=== PATIENT | female | born 1990 | race Caucasian/White ===

== ENCOUNTER 2017-10-24 10:27 | Outpatient (CLI) | payer BC ==
[2017-10-24 11:47] LABS: AMNISURE (ROM) NEGATIVE (NEGATIVE)
[2017-10-24 12:15] LABS: APPEARANCE,URINE CLOUDY; BILIRUBIN,URINE NEGATIVE (NEGATIVE); GLUCOSE, URINE NEGATIVE (NEGATIVE); KETONES,URINE NEGATIVE (NEGATIVE); LEUKOCYTE ESTERASE,URINE NEGATIVE (NEGATIVE); NITRITE,URINE NEGATIVE (NEGATIVE); PROTEIN,URINE NEGATIVE (NEGATIVE); UROBILINOGEN,URINE NEGATIVE mg/dL (<2.0)
[2017-10-24 12:20] LABS: URINE BARBITURATES SCREEN NEGATIVE; URINE METHADONE SCREEN NEGATIVE; URINE OPIATES LOW NEGATIVE; URINE PHENCYCLIDINE SCREEN NEGATIVE
--- NOTE | 2017-10-24 12:31 | Non Stress Test Report ---
Non Stress Test Datetime Report Generated by CPN: 10/24/2017 12:31 DEMOGRAPHIC EGA NST: 32.1 INDICATION Indication for Study: Other Indication for Study (NST) Other: labor check VITAL SIGNS Temperature - NST: 99.1 NBPSYS NST: 110 NBPDIA NST: 53 MONITORING Monitor Explained: Monitor Explained; Test Explained; Patient Verbalized Understanding Time on Monitor: 10/24/2017 10:49 Time off Monitor: 10/24/2017 11:58 NST Duration: 69 NST INTERVENTIONS NST Interventions: PO Hydration Physician Notified NST: Dr. Kosta BABY A: [id number] BABY A Movement : Present Contraction Frequency : 0 FHR Baseline : 145 Accelerations : 15X15 Decelerations : None Variability : Moderate 6-25bpm NST Review: Meets Criteria for Reactive NST NST Review and Verified By : Velma Bhandari RNC NST Results: Reactive NST REPORT Report Trigger: Send Report
[2017-10-24 12:34] LABS: BACTERIA,URINE 1+ /HPF; RBC,URINE RARE /HPF; WBC,URINE 0-1 /HPF
[2017-10-24 13:35] LABS: ADD HIVPANEL? NO; HIV (1 AND 2) ANTIBODY NEGATIVE (NEGATIVE)
[2017-10-25 06:39] LABS: HEPATITIS C VIRUS AB <0.1 s/co ratio (0.0-0.9)
== END 2017-10-24 12:23 | disposition home or self-care (01) ==
LOC: LC 10:27
PROVIDERS: ATTEND Obstetrics & Gynecology
PROC: 4A1HXCZ Monitoring of Products of Conception, Cardiac Rate, External Approach (ICD-10-PCS; principal; 2017-10-24)
DX: Z34.93 Encounter for supervision of normal pregnancy, unspecified, third trimester (principal); Z36.89 Encounter for other specified antenatal screening; Z3A.32 32 weeks gestation of pregnancy
CPT/HCPCS: 36415; 59025; 80307; 81001; 84112; 84443; 86592; 86701; 86803; 86804; 87340

== ENCOUNTER 2017-12-08 21:16 | Outpatient (CLI) | payer BC, MEDICAID ==
[2017-12-08 21:55] LABS: APPEARANCE,URINE CLEAR; BILIRUBIN,URINE NEGATIVE (NEGATIVE); COLOR,URINE STRAW; GLUCOSE, URINE NEGATIVE (NEGATIVE); KETONES,URINE NEGATIVE (NEGATIVE); LEUKOCYTE ESTERASE,URINE NEGATIVE (NEGATIVE); NITRITE,URINE NEGATIVE (NEGATIVE); PROTEIN,URINE NEGATIVE (NEGATIVE); URINE SPECIFIC GRAVITY 1.005; UROBILINOGEN,URINE NEGATIVE mg/dL (<2.0)
[2017-12-08 22:09] LABS: URINE AMPHETAMINES SCREEN NEGATIVE; URINE BARBITURATES SCREEN NEGATIVE; URINE BENZODIAZEPINES SCREEN NEGATIVE; URINE COCAINE SCREEN NEGATIVE; URINE MARIJUANA (THC) SCREEN NEGATIVE; URINE METHADONE SCREEN NEGATIVE; URINE PHENCYCLIDINE SCREEN NEGATIVE
--- NOTE | 2017-12-08 23:25 | Non Stress Test Report ---
Non Stress Test Datetime Report Generated by CPN: 12/08/2017 23:24 DEMOGRAPHIC Test Number: 2 EGA NST: 38.4 INDICATION Indication for Study: Decreased Movement VITAL SIGNS Pulse - NST: 92 RESP - NST: 16 NBPSYS NST: 111 NBPDIA NST: 74 URINE RESULTS Urine Protein, NST: Negative Urine Ketones - NST: Negative Urine Glucose - NST: Negative Urine Blood - NST: Negative MONITORING Monitor Explained: Monitor Explained; Test Explained; Patient Verbalized Understanding Time on Monitor: 12/08/2017 21:39 Time off Monitor: 12/08/2017 22:38 NST Duration: 59 NST INTERVENTIONS NST Interventions: PO Hydration BABY A: [id number] BABY A Movement : Present; Decreased Contraction Frequency : none FHR Baseline : 140 Accelerations : 15X15 Decelerations : None Variability : Moderate 6-25bpm NST Review: Meets Criteria for Reactive NST NST Review and Verified By : Chalman, A. RN NST Results: Reactive NST REPORT Report Trigger: Send Report
== END 2017-12-08 22:46 | disposition home or self-care (01) ==
LOC: LC 21:16
PROVIDERS: ATTEND Student in an Organized Health Care Education/Training Program
PROC: 4A1HXCZ Monitoring of Products of Conception, Cardiac Rate, External Approach (ICD-10-PCS; principal; 2017-12-08)
DX: O36.8130 Decreased fetal movements, third trimester, not applicable or unspecified (principal); Z3A.38 38 weeks gestation of pregnancy
CPT/HCPCS: 59025; 80307; 81001

== ENCOUNTER 2017-12-20 22:40 | Inpatient (IN) | payer MEDICAID ==
[2017-12-20] MEDS ORDERED: RINGERS SOLUTION,LACTATED 1,000 ML IV ONE (23:05)
[2017-12-20] MEDS ORDERED: PENICILLIN G POTASSIUM 5,000,000 UNIT in DEXTROSE 5%-WATER 100 ML IV ONE (23:05)
[2017-12-20] MEDS ORDERED: EPHEDRINE SULFATE INJ 50 MG/1 ML AMPULE ONE (23:07)
[2017-12-20] MEDS ORDERED: OXYTOCIN/NORMAL SALINE 20 UNIT/1,000 ML RTUINJ ONE (23:07)
[2017-12-20] MEDS ORDERED: MISOPROSTOL 0.2 MG TABLET ONE (23:07)
[2017-12-20] MEDS ORDERED: FENTANYL/BUPIVACAINE/NS/PF 200 MCG/100 ML RTUINJ EPI ONE (23:07)
[2017-12-20] MEDS ORDERED: PENICILLIN G-K 5 MILLION UNIT VIAL ONE (23:07)
[2017-12-20] MEDS ORDERED: LIDOCAINE 1% INJ-PF (10 MG/ML) 30 ML SDV ONE (23:07)
[2017-12-20] MEDS ORDERED: BUPIVACAINE HCL 0.25 % INJ/PF (2.5 MG/1 ML) 30 ML VIAL ONE (23:07)
[2017-12-20 23:17] LABS: APPEARANCE,URINE CLOUDY; BILIRUBIN,URINE NEGATIVE (NEGATIVE); COLOR,URINE YELLOW; GLUCOSE, URINE NEGATIVE (NEGATIVE); KETONES,URINE 20 mg/dL (NEGATIVE); LEUKOCYTE ESTERASE,URINE LARGE (NEGATIVE); NITRITE,URINE NEGATIVE (NEGATIVE); PROTEIN,URINE NEGATIVE (NEGATIVE); URINE SPECIFIC GRAVITY 1.012; UROBILINOGEN,URINE NEGATIVE mg/dL (<2.0)
[2017-12-20] MEDS ORDERED: PENICILLIN G-K 5 MILLION UNIT VIAL IV PRN (23:18)
[2017-12-20 23:27] LABS: URINE AMPHETAMINES SCREEN NEGATIVE; URINE BARBITURATES SCREEN NEGATIVE; URINE BENZODIAZEPINES SCREEN NEGATIVE; URINE COCAINE SCREEN NEGATIVE; URINE MARIJUANA (THC) SCREEN NEGATIVE; URINE METHADONE SCREEN NEGATIVE; URINE PHENCYCLIDINE SCREEN NEGATIVE
[2017-12-20 23:32] LABS: ABSOLUTE BASOPHILS # (AUTO) 0.1 10^3/uL (0.0-0.2); ABSOLUTE EOSINOPHILS # (AUTO) 0.1 10^3/uL (0.0-0.6); ABSOLUTE LYMPHOCYTES (AUTO) 1.9 10^3/uL (0.5-4.7); ABSOLUTE MONOCYTES (AUTO) 0.6 10^3/uL (0.1-1.4); ABSOLUTE NEUT (AUTO) 15.1 10^3/uL (1.7-8.2); BASOPHILS % (AUTO) 0.3 % (0-2); EOSINOPHILS % (AUTO) 0.4 % (0-6); HEMATOCRIT 38.8 % (36.0-47.0); HEMOGLOBIN 13.2 g/dL (12.0-15.5); LYMPHOCYTES % (AUTO) 10.8 % (13-45); MEAN CORPUSCULAR HGB CONC 33.9 g/dL (32.0-36.0); MEAN CORPUSCULAR VOLUME 89 fl (80-97); MONOCYTES % (AUTO) 3.1 % (3-13); PLATELET COUNT 233 10^3/uL (150-450); RED BLOOD COUNT 4.38 10^6/uL (3.72-5.28); SEGMENTED NEUTROPHILS % (AUTO) 85.4 % (42-78); TOTAL CELLS COUNTED % (AUTO) 100 %; WHITE BLOOD COUNT 17.7 10^3/uL (4.0-10.5)
[2017-12-21] MEDS ORDERED: PENICILLIN G-K 5 MILLION UNIT VIAL ONE ×2 (02:52→06:37)
[2017-12-21] MEDS: RINGERS SOLUTION,LACTATED 1,000 ML IV PRN ×3 (03:27→22:26)
[2017-12-21] MEDS: PENICILLIN G POTASSIUM 2,500,000 UNIT in DEXTROSE 5%-WATER 50 ML IV SCH ×2 (03:33→06:45)
[2017-12-21] MEDS ORDERED: CEFAZOLIN 2 GM/D5W RTU 2 GM/50 ML RTUPB IV ONE (07:05)
[2017-12-21] MEDS ORDERED: CITRIC ACID/SODIUM CITRATE ORAL SOLN 15 ML UDCUP ONE (07:05)
[2017-12-21] MEDS ORDERED: MIDAZOLAM 2 MG/2 ML INJ ONE (07:14)
[2017-12-21] MEDS ORDERED: OXYTOCIN 10 UNIT/ML VIAL ONE (07:14)
[2017-12-21] MEDS ORDERED: LIDOCAINE 2% INJ-PF (20 MG/ML) 10 ML AMPUL ONE (07:14)
[2017-12-21] MEDS ORDERED: FENTANYL CITRATE INJ/PF 100 MCG/2 ML AMPUL ONE ×2 (07:14→08:29)
[2017-12-21] MEDS ORDERED: ONDANSETRON HCL INJ/PF 4 MG/2 ML SDV ONE (07:14)
[2017-12-21] MEDS ORDERED: ACETAMINOPHEN 100 ML IV ONE (07:15)
[2017-12-21] MEDS ORDERED: METHYLERGONOVINE MALEATE INJ/PF 0.2 MG/1 ML AMPULE ONE (07:15)
--- NOTE | 2017-12-21 07:22 | L&D Progress Notes ---
PROGRESS NOTES Datetime Report Generated by CPN: 12/21/2017 07:22 PROGRESS NOTE Impression: Non-reassuring Heart Rate Informed Consent Obtained: Vaginal Delivery; Risks, Benefits and Alternatives Discussed Comment: Pt with repetitive decelerations. No cervical change. Reviewed FHR decelerations are worsening and reviewed concerns for status. Patient and are in agreement with plan of care for Primary section due to NRFHTs. R/B/A reviewed with patient and oncoming physician Dr. Ibarra. Dr. Ibarra is in agreement iw plan of care. VAGINAL EXAM Dilatation: 6 Effacement: 80 Station: -1 Contractions: q 4-5 MEMBRANES Membranes: Intact FETUS A Presentation: Vertex SIGNATURE SIGNATURE: ,[id number] SIGNATURE: ,[id number] SIGNATURE: [id number] Signature: with User ID: [email or web address]
[2017-12-21] MEDS ORDERED: DIPHENHYDRAMINE HCL 50 MG/ML VIAL IV PRN (07:50)
[2017-12-21] MEDS ORDERED: MORPHINE SULFATE 10 MG/ML INJ IV PRN (07:50)
[2017-12-21] MEDS ORDERED: ONDANSETRON HCL INJ/PF 4 MG/2 ML SDV IV PRN (07:50)
[2017-12-21] MEDS ORDERED: FENTANYL CITRATE INJ/PF 100 MCG/2 ML AMPUL IV PRN ×3 (07:50)
[2017-12-21] MEDS ORDERED: MEPERIDINE HCL/PF INJ 25 MG/1 ML DISP.SYRIN IV PRN (07:50)
[2017-12-21] MEDS ORDERED: OXYCODONE-ACETAMINOPHEN 5-325 MG TABLET PO PRN ×4 (07:50→09:32)
[2017-12-21] MEDS ORDERED: PROMETHAZINE HCL INJ 25 MG/1 ML VIAL IV PRN ×3 (07:50→09:32)
--- NOTE | 2017-12-21 08:18 | OPERATIVE REPORT E ---
Operative Report NAME: THEA KENNEDY : 1990 AGE: 27Y DATE OF SURGERY: 12/21/2017 ROOM: LR200 PREOPERATIVE DIAGNOSES: 1. IUP at term. 2. Nonreassuring strip. POSTOPERATIVE DIAGNOSES: 1. IUP at term. 2. Nonreassuring strip. PROCEDURE: Primary low transverse , delivery of viable female. Apgars 8 and 9. SURGEON: Teofilo ABREU M.D. ESTIMATED BLOOD LOSS: Less than 600 mL. TISSUE REMOVED OR ALTERED: Placenta. ANESTHESIA: Epidural. DESCRIPTION OF PROCEDURE: The patient was placed in a supine position and rolled on her right side, prepped and draped in a sterile fashion. Pfannenstiel incision was made. The incision extended through the subcutaneous tissue and fascia with sharp dissection. Fascia was sharply divided. Rectus muscle was bluntly and sharply divided. Parietal peritoneum was entered with sharp dissection. Uterus was nicked in the midline and extended bilaterally. was then delivered through the uterine abdominal incision. Nose and mouth suctioned with bulb syringe. Cord was clamped. Infant was passed from the table. Placenta was manually extracted. Uterus closed in 2 layers, first with a running stitch using 2-0 Vicryl, second with a Lembert stitch using 0 Vicryl. There was a small amount of bleeding noted along the suture line that was controlled with 2 figure of eight sutures of 0 Vicryl. Hemostasis was noted. Fascia was closed with 0 Vicryl. Skin was closed with subcu absorbable hali. The patient tolerated the procedure well. Urine made clear throughout the procedure. She was taken to recovery room in good condition, to nursery in good condition. DICTATING PHYSICIAN: Teofilo ABREU M.D. [id number] PHY#: [id number] ID: [id number] JOB#: [id number] ACCT: [id number] cc:Teofilo ABREU M.D. >
[2017-12-21] MEDS ORDERED: PROMETHAZINE HCL INJ 25 MG/1 ML VIAL ONE (08:29)
[2017-12-21] MEDS ORDERED: SIMETHICONE 80 MG TAB.CHEW PO PRN (09:32)
[2017-12-21] MEDS ORDERED: MEASLES,MUMPS&RUBELLA VACC/PF 0.5 ML VIAL SUBCUT PRN (09:32)
[2017-12-21] MEDS ORDERED: DIPH/PERTUSS(ACELL)/TETANUS VAC/PF 0.5 ML SYR (>=10YO) IM PRN (09:32)
[2017-12-21] MEDS ORDERED: RINGERS SOLUTION,LACTATED 1,000 ML IV PRN ×2 (09:32→11:44)
--- NOTE | 2017-12-21 10:11 | Admission Physical ---
Datetime Report Generated by CPN: 12/21/2017 10:11 CURRENT ADMISSION Chief Complaint: Uterine Contractions Indication for Induction: Not Applicable Indication for Induction: Term, Intrauterine Admit Plan: Admit to Unit; Initiate Labor Protocol ALLERGIES Medication Allergies: No Medication Allergies: No Known Drug Allergies (12/21/2017) Medication Allergies: No Known Drug Allergies (12/08/2017) Medication Allergies: No Known Drug Allergies (10/24/2017) Latex: No Latex Allergies Food Allergies: n/a Environmental Allergies: n/a OBSTETRICAL HISTORY EDC: 12/18/2017 00:00 EDC: 12/18/2017 00:00 : 2 Para: 1 Term: 0 : 1 SAB: 0 IAB: 0 Ectopic: 1 Livin Cesareans: 0 VBACs: 0 Multiple Births: 1 Gestational Diabetes: No Rh Sensitization: No Incompetent Cervix: No CED: No Infertility: No ART Treatment: No Uterine Anomaly: No IUGR: No Hx Previous C/S: No Macrosomia: No Hx Loss/Stillborn: No PIH: No Hx : No Placenta Previa/Abruption: No Depression/PP Depression: Yes PTL/PROM: Yes Post Hemorrhage: No Current Procedures: Ultrasound; NST Obstetrical History Comments: 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 [id number] MEDICAL HISTORY Diabetes: No Blood Transfusion: No Pulmonary Disease (Asthma, TB): No Breast Disease: No Hypertension: No Cotton Classer Aide Surgery: No Heart Disease: No Hosp/Surgery: Yes Autoimmune Disorder: No Anesthetic Complications: Yes Kidney Disease: Yes Abnormal Pap Smear: No Neuro/Epilepsy: No Psychiatric Disorders: No Other Medical Diseases: No Hepatitis/Liver Disease: No Significant Family History: No Varicosities/Phlebitis: No Trauma/Violence : No Thyroid Dysfunction: No Medical History Comments: G1: Diverticulitis, hemorrhoids Anxiety/depression insulin resistance hospitalization/ surgery: wisdom teeth, tonsillectomy, childbirth Medical History Comments: UTI, Depression/Anxiety, Childbirth INFECTIOUS HISTORY Gonorrhea: No Genital Herpes: Yes Chlamydia: Yes Tuberculosis: No Syphilis: No Hepatitis: No HIV/AIDS Exposure: No Rash or Viral Illness: No HPV: No Infectious History Comments: HSV on valtrex Infectious History Comments: Positive HSV-Valtrex, Chlamydia- neg CASS PHYSICAL EXAM General: Normal HEENT: Normal Neurologic: Normal Thyroid: Deferred Heart: Normal Lungs: Normal Breast: Deferred Back: Normal Abdomen: Normal Genitourinary Exam: Normal Extremities: Normal DTRs: Normal Pelvic Type: Adequate Vital Signs: Reviewed VAGINAL EXAM Dilatation: 6 Effacement: 80 Station: -1 Contraction Comments: q 4-5 MEMBRANES Membranes: Intact FETUS A EGA: 40.2 Monitoring: External US FHR- Baseline: 130 Variability: Moderate 6-25bpm Accelerations: 15X15 Decelerations: None FHR Category: Category I Presentation: Vertex Admit Comment: 27yo at 40+2ega presented from home. Was under the care of [facility] and now comes in for evaluation after laboring at home. Cervix upon arrival is 6cm. notable for initially felt to be heterotopic and the left fallopian tube gestational sac regressed (see [facility]). GBS pos - will begin PCN. 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 Patient was followed initially by MFM. 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 Insulin resistance, Anxiety/depression. Admit to L_D. Pelvis adequate for URIEL. Reassuring FWB. Anticipate PLANS FOR LABOR AND DELIVERY Labor and Delivery: None; Placenta Request Pain Management: None Feeding Preference: Breast Benefit of Breast Feed Discussed: Yes Circumcision: N/A INFORMED CONSENT Informed Consent Obtained: Vaginal Delivery; Risks, Benefits and Alternatives Discussed Signature: with User ID: [email or web address]
--- NOTE | 2017-12-21 10:33 | Delivery Summary ---
Del Sum A-C Datetime Report Generated by CPN: 12/21/2017 10:32 DELIVERY PERSONNEL DELIVERY PERSONNEL: [id number] Delivery Doctor:: Juan Carlos Ibarra MD Anesthesiologist:: Arvind Calvillo MD Portal Developer:: Kaye Jarvis, RN Rustic Terrazzo Setter/FINAL TOUCH UP PAINTER: Audrey Herring, MARINE SCIENTIST Rustic Terrazzo Setter/FINAL TOUCH UP PAINTER: Luba Monson, ST MATERNAL INFORMATION Delivery Anesthesia: Epidural Medications After Delivery: Pitocin Drip 20 Units/1000ml NSS Estimated Blood Loss (ml): 250 LABOR SUMMARY EDC: 12/18/2017 00:00 No. Babies in Womb: 1 Attempted: No Labor Anesthesia: Epidural LABOR INFORMATION Reason for Induction: Not Applicable Oxytocin: Augmentation Group B Beta Strep: Positive Antibiotics # of Doses: 3 Antibiotics Time of Last Dose: 0644 Name of Antibiotic Given: Penicillin Steroids Given: None Reason Steroids Not Administered: Not Applicable MEMBRANES Membranes Rupture Method: Artificial Rupture of Membranes: 12/21/2017 07:37 Length of Rupture (hr): 0.02 Amniotic Fluid Color: Clear Amniotic Fluid Amount: Small Amniotic Fluid Odor: Normal STAGES OF LABOR Stage 3 hr: 0 Stage 3 min: 0 VAGINAL DELIVERY Episiotomy: None Laceration #1: None Laceration Extension #1: N/A CSECTION DELIVERY Primary Indication: Nonreassuring Status Secondary Indication: N/A CSection Urgency: Scheduled CSection Incidence: Primary Labor: Labor Elective: N/A CSection Incision: Lower Uterine Transverse BABY A INFORMATION Infant Delivery Date/Time: 12/21/2017 07:38 Method of Delivery: Born in Route : No : N/A Forceps: N/A Vacuum Extraction: N/A Shoulder Dystocia : No PRESENTATION/POSITION BABY A Presentation: Cephalic Cephalic Presentation: Vertex Breech Presentation: N/A PLACENTA INFORMATION BABY A Placenta Delivery Time : 12/21/2017 07:38 Placenta Method of Delivery: Expressed Placenta Status: Delivered SCORES BABY A Heart Rate 1 min: >100 bpm Resp Effort 1 min: Slow, Irregular Reflex Irritability 1 min: Cough or Sneeze or Pulls Away Muscle Tone 1 min: Active Motion Color 1 min: Body [place], Extremities Blue Resuscitation Effort 1 min: N/A SCORE 1 MIN: 8 Heart Rate 5 min: >100 bpm Resp Effort 5 min: Good Cry Reflex Irritability 5 min: Cough or Sneeze or Pulls Away Muscle Tone 5 min: Active Motion Color 5 min: Body [place], Extremities Blue Resuscitation Effort 5 min: N/A SCORE 5 MIN: 9 INFORMATION BABY A Gestational Age at Delivery: 40.3 Gestational Status: Full Term- 39- 40.6 Weeks Outcome : Liveborn Infant Condition : Stable Infant Sex: Female IDENTIFICATION BABY A Infant Verification Date/Time: 12/21/2017 08:00 ID Band Number: [id number] Mother's Name Verified: Yes Infant RN Verifying : COtf Shaw, RN/ Additional Verifying Personnel: Irvin Todd FINAL TOUCH UP PAINTER WEIGHT/LENGTH BABY A Birthweight (gm): 3110 Infant Weight (lb): 6 Infant Weight (oz): 14 Infant Length (in): 20.00 Infant Length (cm): 50.80 CORD INFORMATION BABY A No. Cord Vessels: 3 Nuchal Cord : N/A Cord Blood Taken: Yes-For Storage (Mom's Blood type +) Suction: None ASSESSMENT BABY A Infant Complications: Multiple Late Decels Physical Findings at Delivery: Within Normal Limits Infant Respirations: Appears Normal Skin to Skin: Yes Biological Engineer/ALS Called : No Care By: Marie Lawrence RN Transferred To: Nursery BABY B INFORMATION : N/A
[2017-12-21] MEDS ORDERED: OXYTOCIN/NORMAL SALINE 20 UNIT/1,000 ML RTUINJ IV PRN (11:44)
[2017-12-21] MEDS ORDERED: HYDROMORPHONE HCL INJ/PF 2 MG/ML AMPULE IV PRN (11:44)
[2017-12-21] MEDS ORDERED: ACETAMINOPHEN 325 MG TABLET PO PRN (11:44)
[2017-12-21] MEDS ORDERED: HYDROMORPHONE HCL INJ/PF 2 MG/ML AMPULE ONE (11:51)
[2017-12-21] MEDS: DOCUSATE SODIUM 100 MG CAPSULE PO SCH ×2 (13:11→17:57)
[2017-12-21] MEDS: PRENATAL VITAMIN W DHA CAPSULE PO SCH (13:11)
[2017-12-21] MEDS: IBUPROFEN 800 MG TABLET PO SCH ×2 (13:12→17:57)
[2017-12-21] MEDS: OXYCODONE-ACETAMINOPHEN 5-325 MG TABLET PO PRN (20:53)
[2017-12-22] MEDS: IBUPROFEN 800 MG TABLET PO SCH ×4 (00:52→17:36)
[2017-12-22] MEDS: OXYCODONE-ACETAMINOPHEN 5-325 MG TABLET PO PRN ×6 (00:53→22:12)
[2017-12-22 07:12] LABS: HEMATOCRIT 34.6 % (36.0-47.0); HEMOGLOBIN 11.6 g/dL (12.0-15.5); MEAN CORPUSCULAR HEMOGLOBIN 30.2 pg (27.0-33.4); MEAN CORPUSCULAR HGB CONC 33.6 g/dL (32.0-36.0); MEAN CORPUSCULAR VOLUME 90 fl (80-97); PLATELET COUNT 191 10^3/uL (150-450); RED BLOOD COUNT 3.85 10^6/uL (3.72-5.28); RED CELL DISTRIBUTION WIDTH 14.6 % (11.5-14.0); WHITE BLOOD COUNT 20.2 10^3/uL (4.0-10.5)
[2017-12-22] MEDS: DOCUSATE SODIUM 100 MG CAPSULE PO SCH ×2 (09:28→17:36)
[2017-12-22] MEDS: PRENATAL VITAMIN W DHA CAPSULE PO SCH (09:28)
[2017-12-22] MEDS: VALACYCLOVIR HCL 500 MG TABLET PO SCH (10:15)
--- NOTE | 2017-12-22 11:00 | PDOC PROGRESS REPORT ---
Subjective-OB Subjective: Post Delivery Day: 27 year old. Denies any needs at this time Physical Exam (OB) Vital Signs: Temp Pulse Resp BP Pulse Ox 97.6 F 87 18 90/57 L 95 12/22/17 08:29 12/22/17 08:29 12/22/17 08:29 12/22/17 08:29 12/22/17 08:29 Intake & Output 12/21/17 12/22/17 12/23/17 06:59 06:59 06:59 Intake Total 300 Output Total 1350 Balance -1050 Weight 99.8 kg - PIH/Pre-Eclampsia DTR's: 2 + Clonus: Negative Headache: Absent Epigastric Pain: No Visual Changes: No - Dressing Removed: No Incision: Dressing - Lochia Lochia Amount: Small 10-25 ml Lochia Color: Rubra/Red - Abdomen Description: Tender, Soft Hernia Present: No Bowel Sounds: Normoactive Flatus Presence: Present Stool: No Fundal Description: Firm, Midline Fundal Height: u/u - u/2 Objective-Diagnostic Laboratory: 12/22/17 06:46 12/22/17 06:46 WBC 20.2 H RBC 3.85 Hgb 11.6 L Hct 34.6 L MCV 90 MCH 30.2 MCHC 33.6 RDW 14.6 H Plt Count 191
[2017-12-23] MEDS: IBUPROFEN 800 MG TABLET PO SCH ×5 (00:09→23:46)
[2017-12-23] MEDS: OXYCODONE-ACETAMINOPHEN 5-325 MG TABLET PO PRN ×5 (02:46→23:46)
[2017-12-23 07:49] LABS: HEMATOCRIT 34.5 % (36.0-47.0); HEMOGLOBIN 11.6 g/dL (12.0-15.5); MEAN CORPUSCULAR HEMOGLOBIN 30.2 pg (27.0-33.4); MEAN CORPUSCULAR HGB CONC 33.5 g/dL (32.0-36.0); MEAN CORPUSCULAR VOLUME 90 fl (80-97); PLATELET COUNT 204 10^3/uL (150-450); RED BLOOD COUNT 3.83 10^6/uL (3.72-5.28); RED CELL DISTRIBUTION WIDTH 14.8 % (11.5-14.0); WHITE BLOOD COUNT 15.6 10^3/uL (4.0-10.5)
--- NOTE | 2017-12-23 09:37 | PDOC PROGRESS REPORT ---
Subjective-OB Subjective: Post Delivery Day: 27 year old. Denies any needs at this time. Baby's bili level elevated. Wants discharge tomorrow as b/fdg. Physical Exam (OB) Vital Signs: Temp Pulse Resp BP Pulse Ox 98.6 F 78 16 88/52 L 97 12/23/17 03:29 12/23/17 03:29 12/23/17 03:29 12/23/17 03:29 12/23/17 03:29 Intake & Output 12/22/17 12/23/17 12/24/17 06:59 06:59 06:59 Intake Total 300 Output Total 1350 Balance -1050 - PIH/Pre-Eclampsia DTR's: 2 + Clonus: Negative Headache: Absent Epigastric Pain: No Visual Changes: No - Dressing Removed: No Incision: Well Approximated Closure Type: Surgical Glue - Lochia Lochia Amount: Small 10-25 ml Lochia Color: Rubra/Red - Abdomen Description: Soft, Round Hernia Present: No Bowel Sounds: Normoactive Flatus Presence: Present Stool: No Fundal Description: Firm, Midline Fundal Height: u/u - u/2 Objective-Diagnostic Laboratory: 12/23/17 07:16 12/23/17 07:16 WBC 15.6 H RBC 3.83 Hgb 11.6 L Hct 34.5 L MCV 90 MCH 30.2 MCHC 33.5 RDW 14.8 H Plt Count 204
[2017-12-23] MEDS: DOCUSATE SODIUM 100 MG CAPSULE PO SCH ×2 (10:58→17:38)
[2017-12-23] MEDS: VALACYCLOVIR HCL 500 MG TABLET PO SCH (10:58)
[2017-12-23] MEDS: PRENATAL VITAMIN W DHA CAPSULE PO SCH (10:58)
[2017-12-24] MEDS: IBUPROFEN 800 MG TABLET PO SCH ×2 (05:59→12:52)
[2017-12-24] MEDS: OXYCODONE-ACETAMINOPHEN 5-325 MG TABLET PO PRN ×2 (06:00→12:54)
--- NOTE | 2017-12-24 09:12 | PDOC PROGRESS REPORT ---
Subjective-OB Subjective: Post Delivery Day: 27 year old. Some light-headedness yesterday pm and this am-she feels may be related to anxiety she feels toward baby-feels must be looking at baby all of the time. Physical Exam (OB) Vital Signs: Temp Pulse Resp BP Pulse Ox 98.4 F 74 18 94/48 L 99 12/24/17 03:45 12/24/17 03:45 12/23/17 23:54 12/24/17 03:45 12/24/17 03:45 - PIH/Pre-Eclampsia DTR's: 2 + Clonus: Negative Headache: Absent Epigastric Pain: No Visual Changes: No - Dressing Removed: Yes Incision: Well Approximated Closure Type: Sutures - Lochia Lochia Amount: Small 10-25 ml Lochia Color: Rubra/Red - Abdomen Description: Soft, Round Hernia Present: No Bowel Sounds: Normoactive Flatus Presence: Present Stool: No Fundal Description: Firm, Midline Fundal Height: u/u - u/2 Objective-Diagnostic Laboratory: 12/23/17 07:16
--- NOTE | 2017-12-24 09:21 | PDOC DISCHARGE SUMMARY ---
Final Diagnosis Discharge Date: 12/24/17 - Final Diagnosis (1) Delivery by emergency caesarean section Is this a current diagnosis for this admission?: Yes (2) Depression with anxiety Is this a current diagnosis for this admission?: Yes (3) History of 31wk demise Is this a current diagnosis for this admission?: Yes (4) History of Western blot positive for herpes simplex virus type 2 Is this a current diagnosis for this admission?: Yes (5) Non-reassuring electronic monitoring tracing Is this a current diagnosis for this admission?: Yes (6) Is this a current diagnosis for this admission?: Yes Discharge Data - Discharge Medication Prescriptions: Oxycodone HCl/Acetaminophen [Percocet 5-325 mg Tablet] 1 tab PO Q4HP PRN #20 tablet PRN Reason: Docusate Sodium [Colace 100 mg Capsule] 100 mg PO BID #30 capsule Ibuprofen [Motrin 800 mg Tablet] 800 mg PO Q6 #30 tablet Sertraline HCl [Zoloft 50 mg Tablet] 25 mg PO DAILY #30 tablet Home Medications: Prenat 115/Iron Fum/Folic/Dss [Pnv-Ferrous Ocxesvqd-Smsy-RN] 1 tab PO DAILY 04/05 Acyclovir 800 mg PO DAILY 12/08/17 Docosahexanoic Acid [Dha] 100 mg PO DAILY 12/08/17 Docusate Sodium [Colace 100 mg Capsule] 100 mg PO BID #30 capsule 12/24/17 Ibuprofen [Motrin 800 mg Tablet] 800 mg PO Q6 #30 tablet 12/24/17 Oxycodone HCl/Acetaminophen [Percocet 5-325 mg Tablet] 1 tab PO Q4HP PRN #20 tablet 12/24/17 Sertraline HCl [Zoloft 50 mg Tablet] 25 mg PO DAILY #30 tablet 12/24/17 Gestational Age: 40.3 wks Reason(s) for Admission: Onset of Labor Procedures: Ultrasound Intrapartum Procedure(s): : Low Cervical, Transverse - [place] Data Baby 1 Female at 1 minute: 8 at 5 minutes: 9 Weight: 3.118 kg Home with Mother: No Complications: Yes - Elevated bilirubin - Diagnosis Test Laboratory: Temp Pulse Resp BP Pulse Ox 98.4 F 74 18 94/48 L 99 12/24/17 03:45 12/24/17 03:45 12/23/17 23:54 12/24/17 03:45 12/24/17 03:45 12/20/17 12/20/17 12/22/17 22:49 23:20 06:46 RBC 4.38 3.85 Hgb 13.2 11.6 L Hct 38.8 34.6 L Urine Opiates Screen NEGATIVE 12/23/17 07:16 RBC 3.83 Hgb 11.6 L Hct 34.5 L Urine Opiates Screen - Discharge information/Instructions Discharge Activity: Activity As Tolerated, Balance Activity w/Rest, No Lifting Over 10 Pounds, No Lifting/Push/Pulling, Pelvic Rest, Slowly Increase Activity, No tub bath Discharge Diet: Regular Disposition: HOME, SELF-CARE Follow [facility]: [facility] in: 1, Weeks
[2017-12-24 09:34] VITALS: BP 106/63
[2017-12-24] MEDS: DOCUSATE SODIUM 100 MG CAPSULE PO SCH (09:35)
[2017-12-24] MEDS: PRENATAL VITAMIN W DHA CAPSULE PO SCH (09:35)
[2017-12-24] MEDS: VALACYCLOVIR HCL 500 MG TABLET PO SCH (09:35)
[2017-12-24] MEDS ORDERED: INFLUENZA ADLT QUAD (36MOS+) 2017-18 VAC 0.5 ML SYR IM PRN (13:29)
== END 2017-12-24 13:56 | disposition home or self-care (01) | DRG 765 ==
LOC: LC 22:40 → LR 23:07 → 2S 12-21 10:10
PROVIDERS: ADMIT Obstetrics & Gynecology Gynecology; ATTEND Obstetrics & Gynecology Gynecology
PROC: 4A1HXCZ Monitoring of Products of Conception, Cardiac Rate, External Approach (ICD-10-PCS; 2017-12-20)
PROC: 10D00Z1 Extraction of Products of Conception, Low, Open Approach (ICD-10-PCS; principal; 2017-12-21)
PROC: 3E0234Z Introduction of Serum, Toxoid and Vaccine into Muscle, Percutaneous Approach (ICD-10-PCS; 2017-12-24)
DX: O76 Abnormality in fetal heart rate and rhythm complicating labor and delivery (principal); O98.32 Other infections with a predominantly sexual mode of transmission complicating childbirth; O99.824 Streptococcus B carrier state complicating childbirth; A60.00 Herpesviral infection of urogenital system, unspecified; O99.344 Other mental disorders complicating childbirth; F41.9 Anxiety disorder, unspecified; F32.9 Major depressive disorder, single episode, unspecified; Z3A.40 40 weeks gestation of pregnancy; Z79.899 Other long term (current) drug therapy; Z37.0 Single live birth
CPT/HCPCS: 1961; 36415; 80307; 81001; 85025; 85027; 86592; 86701; 86850; 86900; 86901; 90686; 94799; J0131; J0690; J1170; J2210; J2250; J2405; J2540; J2550; J2590; J3010; J3490; J7120